=== PATIENT | female | born 1955 | race African-American/Black ===

== ENCOUNTER 2018-07-29 02:48 | Emergency (ER) | payer MEDICAID ==
[~2018-07-29] VITALS: Ht 167.6 cm; Wt 95.0 kg
[~2018-07-29 02:48] MED LIST: ASPI-986 PO; CALC1TAB17 PO; CARV3.1242 PO; EMTR1TAB11 PO; FLUO1POW12 MC; GABA250S4 PO; ZOLP5TAB8 PO; [UNRECOGNIZED DRUG - CODE] PO; [UNRECOGNIZED DRUG - CODE] PO
[2018-07-29 04:22] LABS: BASOPHILS % 0.5 % (0.0-2.0); EOSINOPHILS % 1.7 % (0.0-5.0); HEMATOCRIT. 38.8 % (36.0-48.0); HEMOGLOBIN. 13.1 g/dL (12.0-16.0); LYMPHOCYTES % 45.3 % (20.0-50.0); MEAN CORPUSCULAR HEMOGLOBIN 33.5 pg (28.0-32.0); MEAN CORPUSCULAR VOLUME 99.5 fL (81.0-99.0); MEAN PLATELET VOLUME 9.9 fl (7.4-10.4); MONOCYTES % 7.1 % (2.0-8.0); NEUTROPHILS % 45.4 % (40.0-76.0); PLATELET 235 x1000/uL (130-400)
[2018-07-29 04:22] LABS: CLARITY URINE CLEAR (CLEAR); COLOR URINE YELLOW (YELLOW); KETONES URINE NEGATIVE (NEGATIVE); LEUKOCYTE ESTERASE URINE NEGATIVE (NEGATIVE); NITRITE URINE NEGATIVE (NEGATIVE); OCCULT BLOOD URINE TRACE (NEGATIVE); PROTEIN URINE NEGATIVE (NEGATIVE); SPECIFIC GRAVITY URINE 1.003 (1.005-1.030); UROBILINOGEN URINE 0.2 E.U./dL (0.2-1.0)
[2018-07-29 04:26] LABS: CHLORIDE 106 mEq/L (98-107)
[2018-07-29 04:30] LABS: ETHANOL BLOOD 238 mg/dL
[2018-07-29 04:44] LABS: CANNABINOID URINE SCREEN PRESUMTIVE POSITIVE (NEGATIVE); OPIATES URINE SCREEN NEGATIVE (NEGATIVE); PHENCYCLIDINE URINE SCREEN NEGATIVE (NEGATIVE)
[2018-07-29 04:45] LABS: *AMPHETAMINES SCREEN URINE NEGATIVE (NEGATIVE); *BARBITURATES SCREEN URINE NEGATIVE (NEGATIVE); *BENZODIAZEPINES SCREEN URINE NEGATIVE (NEGATIVE); *COCAINE SCREEN URINE NEGATIVE (NEGATIVE); METHADONE URINE SCREEN NEGATIVE (NEGATIVE)
[2018-07-29] MEDS ORDERED: KETOROLAC 30MG/ML VIAL IM ONE (10:15)
[2018-07-29 11:17] VITALS: BP 132/74
== END 2018-07-29 11:57 | disposition home or self-care (01) ==
LOC: ER 04:30
DX: R45.851 Suicidal ideations (principal); F12.10 Cannabis abuse, uncomplicated; F10.10 Alcohol abuse, uncomplicated; F20.9 Schizophrenia, unspecified; I11.0 Hypertensive heart disease with heart failure; I50.9 Heart failure, unspecified; J44.9 Chronic obstructive pulmonary disease, unspecified; F17.200 Nicotine dependence, unspecified, uncomplicated; E66.9 Obesity, unspecified; Y90.7 Blood alcohol level of 200-239 mg/100 ml; Z86.19 Personal history of other infectious and parasitic diseases; Z79.82 Long term (current) use of aspirin; Z68.33 Body mass index [BMI] 33.0-33.9, adult
CPT/HCPCS: 36415; 80048; 80305; 80307; 80329; 81003; 85025; 96372; 99284; G0482; J1885; 99283

== ENCOUNTER 2018-10-18 08:56 | Emergency (ER) | payer MEDICAID ==
[~2018-10-18] VITALS: Ht 167.6 cm; Wt 90.0 kg
[2018-10-18] MEDS ORDERED: FAMOTIDINE 20MG/2ML VIAL IV STA (09:11)
[2018-10-18] MEDS ORDERED: SODIUM CHLORIDE 0.9% 1,000 ML IV ONE (09:11)
[2018-10-18] MEDS ORDERED: ONDANSETRON HCL 4MG/2ML INJ IV STA (09:11)
[2018-10-18 09:33] LABS: CLARITY URINE CLOUDY (CLEAR); COLOR URINE YELLOW (YELLOW); KETONES URINE NEGATIVE (NEGATIVE); LEUKOCYTE ESTERASE URINE 2+ (NEGATIVE); NITRITE URINE NEGATIVE (NEGATIVE); OCCULT BLOOD URINE 1+ (NEGATIVE); PROTEIN URINE NEGATIVE (NEGATIVE); SPECIFIC GRAVITY URINE 1.012 (1.005-1.030); UROBILINOGEN URINE 0.2 E.U./dL (0.2-1.0)
[2018-10-18 09:36] LABS: BASOPHILS % 1.4 % (0.0-2.0); EOSINOPHILS % 1.1 % (0.0-5.0); HEMATOCRIT. 40.5 % (36.0-48.0); HEMOGLOBIN. 13.6 g/dL (12.0-16.0); LYMPHOCYTES % 34.6 % (20.0-50.0); MEAN CORPUSCULAR VOLUME 98.6 fL (81.0-99.0); MEAN PLATELET VOLUME 9.5 fl (7.4-10.4); MONOCYTES % 4.3 % (2.0-8.0); NEUTROPHILS % 58.6 % (40.0-76.0); PLATELET 208 x1000/uL (130-400); RED BLOOD CELL COUNT 4.11 mill/uL (4.2-5.4); RED CELL DISTRIBUTION WIDTH 13.4 % (11.6-14.6)
[2018-10-18 09:42] LABS: CHLORIDE 108 mEq/L (98-107)
[2018-10-18 09:43] LABS: PROTHROMBIN TIME 9.6 sec (9.1-11.1)
[2018-10-18 09:45] LABS: ETHANOL BLOOD 160 mg/dL
[2018-10-18 10:10] LABS: CANNABINOID URINE SCREEN PRESUMTIVE POSITIVE (NEGATIVE)
[2018-10-18 10:11] LABS: *AMPHETAMINES SCREEN URINE NEGATIVE (NEGATIVE); *BARBITURATES SCREEN URINE NEGATIVE (NEGATIVE); *BENZODIAZEPINES SCREEN URINE NEGATIVE (NEGATIVE); *COCAINE SCREEN URINE NEGATIVE (NEGATIVE); METHADONE URINE SCREEN NEGATIVE (NEGATIVE); OPIATES URINE SCREEN NEGATIVE (NEGATIVE)
[2018-10-18 10:12] LABS: PHENCYCLIDINE URINE SCREEN NEGATIVE (NEGATIVE)
[2018-10-18] MEDS ORDERED: LORAZEPAM 2MG/ML CPJ IV ONE (10:30)
[2018-10-18 15:35] VITALS: BP 137/67
== END 2018-10-18 15:30 | disposition home or self-care (01) ==
LOC: ER 08:56
DX: N39.0 Urinary tract infection, site not specified (principal); F10.129 Alcohol abuse with intoxication, unspecified; R11.10 Vomiting, unspecified; K29.70 Gastritis, unspecified, without bleeding; J44.9 Chronic obstructive pulmonary disease, unspecified; F17.200 Nicotine dependence, unspecified, uncomplicated; Z79.899 Other long term (current) drug therapy; Z79.82 Long term (current) use of aspirin
CPT/HCPCS: 36415; 71045; 74176; 80053; 80305; 80320; 81003; 83690; 83880; 84484; 85025; 85610; 86850; 86900; 86901; 93005; 96361; 96374; 96375; 99284; J2060; J2405; J3490; J7030; Z7610; G0480

== ENCOUNTER 2020-04-13 07:15 | Emergency (ER) | payer MEDICAID ==
[~2020-04-13] VITALS: Ht 162.6 cm; Wt 100.0 kg
[2020-04-13 08:15] LABS: BASOPHILS % 0.9 % (0.0-2.0); EOSINOPHILS % 1.3 % (0.0-5.0); HEMATOCRIT. 36.5 % (36.0-48.0); HEMOGLOBIN. 12.3 g/dL (12.0-16.0); LYMPHOCYTES % 49.1 % (20.0-50.0); MEAN CORPUSCULAR HEMOGLOBIN 33.8 pg (28.0-32.0); MEAN CORPUSCULAR VOLUME 100.2 fL (81.0-99.0); MEAN PLATELET VOLUME 9.9 fl (7.4-10.4); MONOCYTES % 6.1 % (2.0-8.0); NEUTROPHILS % 42.6 % (40.0-76.0); PLATELET 233 x1000/uL (130-400); RED BLOOD CELL COUNT 3.64 mill/uL (4.2-5.4)
[2020-04-13 08:23] LABS: CHLORIDE 109 mEq/L (98-107)
[2020-04-13 08:27] LABS: ETHANOL BLOOD 288 mg/dL
[2020-04-13 08:33] LABS: CLARITY URINE CLOUDY (CLEAR); COLOR URINE YELLOW (YELLOW); KETONES URINE NEGATIVE (NEGATIVE); LEUKOCYTE ESTERASE URINE 2+ (NEGATIVE); NITRITE URINE NEGATIVE (NEGATIVE); OCCULT BLOOD URINE TRACE (NEGATIVE); PROTEIN URINE NEGATIVE (NEGATIVE); SPECIFIC GRAVITY URINE 1.008 (1.005-1.030); UROBILINOGEN URINE 0.2 E.U./dL (0.2-1.0)
[2020-04-13 09:24] LABS: *BARBITURATES SCREEN URINE NEGATIVE (NEGATIVE); *BENZODIAZEPINES SCREEN URINE NEGATIVE (NEGATIVE); *COCAINE SCREEN URINE NEGATIVE (NEGATIVE); METHADONE URINE SCREEN NEGATIVE (NEGATIVE); OPIATES URINE SCREEN NEGATIVE (NEGATIVE); PHENCYCLIDINE URINE SCREEN NEGATIVE (NEGATIVE)
[2020-04-13 09:25] LABS: *AMPHETAMINES SCREEN URINE NEGATIVE (NEGATIVE); CANNABINOID URINE SCREEN PRESUMTIVE POSITIVE (NEGATIVE)
[2020-04-13] MEDS ORDERED: POTASSIUM CHLORIDE 20MEQ TABLET SR PO ONE (11:45)
[2020-04-13] MEDS: CEPHALEXIN 250MG CAPSULE PO SCH ×2 (12:06→13:00)
[2020-04-15] MEDS ORDERED: LORAZEPAM 2MG/ML CPJ IM ONE (07:45)
[2020-04-15] MEDS ORDERED: OLANZAPINE 10 MG/VIAL IM ONE (07:45)
[2020-04-15] MEDS: NITROFURANTOIN 100MG M/M CAPSULE PO SCH (21:18)
[2020-04-16] MEDS: NITROFURANTOIN 100MG M/M CAPSULE PO SCH ×2 (09:00→21:34)
[2020-04-16] MEDS ORDERED: GABAPENTIN 300MG CAPSULE PO ONE (18:15)
[2020-04-16] MEDS ORDERED: CLONIDINE 0.1MG TABLET PO ONE (20:45)
[2020-04-16 21:39] VITALS: BP 168/84
== END 2020-04-16 21:48 ==
LOC: ER 07:15
DX: R45.851 Suicidal ideations (principal); T40.7X1A Poisoning by cannabis (derivatives), accidental (unintentional), initial encounter; I11.0 Hypertensive heart disease with heart failure; I50.9 Heart failure, unspecified; J44.9 Chronic obstructive pulmonary disease, unspecified; N30.00 Acute cystitis without hematuria; Z79.899 Other long term (current) drug therapy; Y92.9 Unspecified place or not applicable
CPT/HCPCS: 36415; 80053; 80305; 80307; 80320; 80329; 81003; 85025; 93005; 99285; J2060; J3490; G0480

== ENCOUNTER 2021-10-01 22:03 | Inpatient (IN) | payer MEDICARE, MEDICAID ==
[~2021-10-01] VITALS: Ht 167.6 cm; Wt 89.8 kg
[2021-10-01] MEDS ORDERED: PIPERACILLIN/TAZ 3.375G PREMIX 50 ML IV ONE (23:15)
[2021-10-01] MEDS ORDERED: VANCOMYCIN 1G PREMIX 200 ML IV ONE (23:15)
[2021-10-01] MEDS ORDERED: SODIUM CHLORIDE 0.9% 1000ML BAG (SEPSIS BOLUS) IV ONE (23:15)
[2021-10-01 23:41] LABS: BASOPHILS % 0.8 % (0.0-2.0); EOSINOPHILS % 1.1 % (0.0-5.0); HEMATOCRIT. 33.2 % (36.0-48.0); HEMOGLOBIN. 10.8 g/dL (12.0-16.0); LYMPHOCYTES % 34.8 % (20.0-50.0); MEAN CORPUSCULAR HEMOGLOBIN 29.7 pg (28.0-32.0); MEAN CORPUSCULAR VOLUME 91.2 fL (81.0-99.0); MONOCYTES % 11.6 % (2.0-8.0); NEUTROPHILS % 51.7 % (40.0-76.0); PLATELET 272 x1000/uL (130-400); RED BLOOD CELL COUNT 3.64 mill/uL (4.2-5.4)
[2021-10-01 23:49] LABS: CHLORIDE 111 mEq/L (98-107)
[2021-10-02] MEDS ORDERED: MORPHINE SULFATE 4 MG/ML CPJ (NOT FOR IM USE) IV STA (00:47)
[2021-10-02] MEDS ORDERED: ONDANSETRON HCL 4MG/2ML INJ IV STA (00:47)
[2021-10-02] MEDS ORDERED: DIPHENHYDRAMINE 50MG/ML VIAL IV ONE (01:00)
[2021-10-02] MEDS ORDERED: ASPIRIN 81MG TABLET PO ONE (01:00)
[2021-10-02 01:45] LABS: CLARITY URINE CLEAR (CLEAR); COLOR URINE YELLOW (YELLOW); KETONES URINE NEGATIVE (NEGATIVE); LEUKOCYTE ESTERASE URINE NEGATIVE (NEGATIVE); NITRITE URINE NEGATIVE (NEGATIVE); OCCULT BLOOD URINE 2+ (NEGATIVE); PH URINE 5.5 (4.5-8.0); PROTEIN URINE NEGATIVE (NEGATIVE); SPECIFIC GRAVITY URINE 1.015 (1.005-1.030); UROBILINOGEN URINE 0.2 E.U./dL (0.2-1.0)
[2021-10-02] MEDS ORDERED: DIPHENHYDRAMINE 50MG/ML VIAL IV NR (05:45)
[2021-10-02 14:00] VITALS: BP 162/78
[2021-10-02] MEDS ORDERED: GABA-532 PO (15:10)
[2021-10-02] MEDS ORDERED: ACET-2708 PO (15:10)
[2021-10-02] MEDS ORDERED: CARV25TA47 MT (15:10)
[2021-10-02] MEDS ORDERED: BICT1TAB PO (15:10)
[2021-10-02] MEDS ORDERED: CHLO25TA2 PO (15:10)
[2021-10-02 15:44] VITALS: BP 162/78
[2021-10-02] MEDS ORDERED: IPRATROPIUM/ALBUTEROL 0.5-3(2.5)MG/3ML NEB HHN PRN (16:00)
[2021-10-02] MEDS ORDERED: CLONIDINE 0.1MG TABLET PO PRN (16:00)
[2021-10-02 17:02] LABS: BASOPHILS % 0.3 % (0.0-2.0); EOSINOPHILS % 1.8 % (0.0-5.0); HEMATOCRIT. 31.9 % (36.0-48.0); HEMOGLOBIN. 10.6 g/dL (12.0-16.0); LYMPHOCYTES % 28.4 % (20.0-50.0); MEAN CORPUSCULAR HEMOGLOBIN 30.6 pg (28.0-32.0); MEAN CORPUSCULAR VOLUME 91.6 fL (81.0-99.0); MEAN PLATELET VOLUME 9.5 fl (7.4-10.4); MONOCYTES % 10.8 % (2.0-8.0); NEUTROPHILS % 58.7 % (40.0-76.0); PLATELET 250 x1000/uL (130-400); RED BLOOD CELL COUNT 3.48 mill/uL (4.2-5.4); RED CELL DISTRIBUTION WIDTH 13.9 % (11.6-14.6)
[2021-10-02 17:08] LABS: CHLORIDE 113 mEq/L (98-107)
[2021-10-02] MEDS: SODIUM CHLORIDE 0.45% 1,000 ML IV SCH (17:48)
[2021-10-02] MEDS ORDERED: *PATIENT'S OWN MEDICATION STORAGE XX SCH (18:30)
[2021-10-02 20:00] VITALS: BP 138/71
[2021-10-02] MEDS: BIKTARVY PO SCH (20:00)
[2021-10-02] MEDS: ACETAMINOPHEN 325MG TABLET PO PRN (20:08)
[2021-10-02] MEDS: CARVEDILOL 3.125 MG TABLET PO SCH (20:09)
[2021-10-03] VITALS: BP 143/77
[2021-10-03 04:00] VITALS: BP 153/82
[2021-10-03] MEDS: SODIUM CHLORIDE 0.45% 1,000 ML IV SCH (05:36)
[2021-10-03 08:21] VITALS: BP 146/74
[2021-10-03] MEDS ORDERED: THROAT LOZENGES-BENZOCAINE/MENTH/CETYLPYRD CL LOZENGES MM PRN (08:45)
[2021-10-03] MEDS: ASPIRIN 325MG EC TABLET PO SCH (09:02)
[2021-10-03] MEDS: CARVEDILOL 3.125 MG TABLET PO SCH ×2 (09:02→22:09)
[2021-10-03] MEDS: BIKTARVY PO SCH (09:02)
[2021-10-03] MEDS: ACETAMINOPHEN 325MG TABLET PO PRN ×3 (09:49→22:09)
[2021-10-03 10:20] LABS: CHLORIDE 110 mEq/L (98-107)
[2021-10-03 10:26] LABS: BASOPHILS % 0.5 % (0.0-2.0); EOSINOPHILS % 1.2 % (0.0-5.0); HEMOGLOBIN. 10.2 g/dL (12.0-16.0); LYMPHOCYTES % 19.7 % (20.0-50.0); MEAN CORPUSCULAR HEMOGLOBIN 30.9 pg (28.0-32.0); MEAN CORPUSCULAR VOLUME 91.1 fL (81.0-99.0); MEAN PLATELET VOLUME 9.6 fl (7.4-10.4); MONOCYTES % 9.1 % (2.0-8.0); NEUTROPHILS % 69.5 % (40.0-76.0); PLATELET 238 x1000/uL (130-400); RED BLOOD CELL COUNT 3.29 mill/uL (4.2-5.4)
[2021-10-03 12:08] VITALS: BP 141/63
[2021-10-03] MEDS ORDERED: AMOX-424 MT (15:08)
[2021-10-03] MEDS: AMOXICILLIN/POTASSIUM CLAVULANATE 875/125MG TAB PO SCH ×2 (15:24→22:08)
[2021-10-03 15:47] VITALS: BP 123/53
[2021-10-03 20:00] VITALS: BP 129/75
[2021-10-04] VITALS: BP 169/78
[2021-10-04 02:00] VITALS: BP 147/85
[2021-10-04 04:42] VITALS: BP 151/97
[2021-10-04 06:11] LABS: % CD 3 POS. LYMPHOCYTES 79.5 % (57.5-86.2); % CD 4 POS. LYMPHOCYTES 40.8 % (30.8-58.5); ABSOLUTE CD 3 1113 /uL (622-2402); ABSOLUTE CD 4 HELPER 571 /uL (359-1519); ABSOLUTE CD 8 SUPPRESSOR 560 /uL (109-897); ABSOLUTE EOSINOPHILS 0.1 x10E3/uL (0.0-0.4); ABSOLUTE LYMPHOCYTES 1.4 x10E3/uL (0.7-3.1); ABSOLUTE MONOCYTES 0.5 x10E3/uL (0.1-0.9); ABSOLUTE NEUTROPHILS 4.8 x10E3/uL (1.4-7.0); BASOPHILS 0 % (Not Estab.); CD4/CD8 RATIO 1.02 (0.92-3.72); HEMATOCRIT 31.5 % (34.0-46.6); HEMOGLOBIN 10.3 g/dL (11.1-15.9); IMMATURE GRANULOCYTES 0 % (Not Estab.); LYMPHOCYTES 21 % (Not Estab.); MEAN CORPUSCULAR HEMOGLOBIN 30.3 pg (26.6-33.0); MEAN CORPUSCULAR HGB CONC. 32.7 g/dL (31.5-35.7); MEAN CORPUSCULAR VOLUME 93 fL (79-97); MONOCYTES 7 % (Not Estab.); NEUTROPHILS 71 % (Not Estab.); PLATELETS 251 x10E3/uL (150-450); RED CELL DISTRIBUTION WIDTH 13.4 % (11.7-15.4); WBC 6.9 x10E3/uL (3.4-10.8)
[2021-10-04 07:45] VITALS: BP 148/90
[2021-10-04] MEDS ORDERED: NEOMYCIN/BACITRACIN/POLYMYXIN OINT 14GM TOP SCH (09:00)
[2021-10-04] MEDS: AMOXICILLIN/POTASSIUM CLAVULANATE 875/125MG TAB PO SCH (09:36)
[2021-10-04] MEDS: ASPIRIN 325MG EC TABLET PO SCH (09:36)
[2021-10-04] MEDS: CARVEDILOL 3.125 MG TABLET PO SCH (09:37)
[2021-10-04] MEDS: ACETAMINOPHEN 325MG TABLET PO PRN (09:38)
[2021-10-04] MEDS: BIKTARVY PO SCH (09:44)
== END 2021-10-04 12:50 | disposition home health service (06) | DRG 469 ==
LOC: ER 22:03 → MICUSO 10-02 00:56 → 6WST 10-02 13:30
PROVIDERS: ADMIT Family Medicine; ATTEND Family Medicine
PROC: 0HD5XZZ Extraction of Chest Skin, External Approach (ICD-10-PCS; principal; 2021-10-03)
PROC: 0HD5XZZ Extraction of Chest Skin, External Approach (ICD-10-PCS; 2021-10-03)
DX: N17.0 Acute kidney failure with tubular necrosis (principal); B20 Human immunodeficiency virus [HIV] disease; E44.1 Mild protein-calorie malnutrition; I69.354 Hemiplegia and hemiparesis following cerebral infarction affecting left non-dominant side; I50.9 Heart failure, unspecified; E11.9 Type 2 diabetes mellitus without complications; D64.9 Anemia, unspecified; I11.0 Hypertensive heart disease with heart failure; E66.01 Morbid (severe) obesity due to excess calories; G40.909 Epilepsy, unspecified, not intractable, without status epilepticus; R79.89 Other specified abnormal findings of blood chemistry; Z20.822 Contact with and (suspected) exposure to COVID-19; J44.9 Chronic obstructive pulmonary disease, unspecified; Z85.3 Personal history of malignant neoplasm of breast; Z87.891 Personal history of nicotine dependence; Z68.32 Body mass index [BMI] 32.0-32.9, adult; Z79.82 Long term (current) use of aspirin; Z79.899 Other long term (current) drug therapy; N63.20 Unspecified lump in the left breast, unspecified quadrant; N63.10 Unspecified lump in the right breast, unspecified quadrant; R77.8 Other specified abnormalities of plasma proteins
CPT/HCPCS: 36415; 71045; 76642; 80053; 81003; 83036; 83605; 83880; 84145; 84484; 85025; 86359; 86360; 87426; 93005; 93306; 94640; 99285; C1893; J1200; J2270; J2405; J2543; J3370; J7030

== ENCOUNTER 2022-12-10 17:53 | Inpatient (IN) | payer MEDICARE, MEDICAID ==
[~2022-12-10] VITALS: Ht 160 cm; Wt 82.1 kg
[~2022-12-10 17:53] MED LIST changes: +ACET-2708 PO; +AMOX-424 MT; +BICT1TAB PO; +CARV25TA47 MT; +CHLO25TA2 PO; +GABA-532 PO
[2022-12-10] MEDS ORDERED: SODIUM CHLORIDE 0.9% 1,000 ML IV ONE (19:30)
[2022-12-10 19:36] LABS: BASOPHILS % 0.9 % (0.0-2.0); HEMATOCRIT. 35.9 % (36.0-48.0); HEMOGLOBIN. 11.8 g/dL (12.0-16.0); MEAN CORPUSCULAR HEMOGLOBIN 31.5 pg (28.0-32.0); MEAN CORPUSCULAR VOLUME 95.3 fL (81.0-99.0); MEAN PLATELET VOLUME 10.3 fl (7.4-10.4); MONOCYTES % 8.6 % (2.0-8.0); NEUTROPHILS % 58.5 % (40.0-76.0); PLATELET 237 x1000/uL (130-400); RED BLOOD CELL COUNT 3.77 mill/uL (4.2-5.4)
[2022-12-10 19:38] LABS: CLARITY URINE CLEAR (CLEAR); COLOR URINE YELLOW (YELLOW); KETONES URINE NEGATIVE (NEGATIVE); LEUKOCYTE ESTERASE URINE 3+ (NEGATIVE); NITRITE URINE NEGATIVE (NEGATIVE); OCCULT BLOOD URINE 2+ (NEGATIVE); PH URINE 7.5 (4.5-8.0); PROTEIN URINE NEGATIVE (NEGATIVE); SPECIFIC GRAVITY URINE 1.012 (1.005-1.030)
[2022-12-10 19:41] LABS: INR 0.9; PROTHROMBIN TIME 10.1 sec (9.6-11.0)
[2022-12-10 19:46] LABS: CHLORIDE 110 mEq/L (98-107)
[2022-12-10 19:49] LABS: *AMPHETAMINES SCREEN URINE NEGATIVE (NEGATIVE); *BARBITURATES SCREEN URINE NEGATIVE (NEGATIVE); *BENZODIAZEPINES SCREEN URINE NEGATIVE (NEGATIVE); *COCAINE SCREEN URINE PRESUMTIVE POSITIVE (NEGATIVE); CANNABINOID URINE SCREEN PRESUMTIVE POSITIVE (NEGATIVE); METHADONE URINE SCREEN NEGATIVE (NEGATIVE); OPIATES URINE SCREEN NEGATIVE (NEGATIVE); PHENCYCLIDINE URINE SCREEN NEGATIVE (NEGATIVE)
[2022-12-10 20:01] LABS: CREATINE KINASE 49 IU/L (26-192); ETHANOL BLOOD < 10 mg/dL
[2022-12-10 20:15] LABS: BG BASE EXCESS 1.5 mmol/L (-2.0-2.0); BG CARBOXYHEMOGLOBIN 1.7 % (0.5-1.5); BG DEOXYHEMOGLOBIN 4.9 % (0.0-5.0); BG HCO3 ACT 25.6 mmol/L (22.0-26.0); BG METHEMOGLOBIN 0.2 % (0.0-1.5); BG OXYHEMOGLOBIN 93.2 % (94.0-97.0); BG PCO2 38.8 mmHg (35.0-45.0); BG PH 7.438 (7.350-7.450); BG PO2 74.6 mmHg (75.0-100.0); BG SAMPLE SITE LEFT BRACHIAL; BG TOTAL HEMOGLOBIN 12.2 g/dL (12.0-18.0); BG VENT MODE ROOM AIR
[2022-12-10] MEDS ORDERED: CEFTRIAXONE 1GM PREMIX 50 ML IV ONE (20:45)
[2022-12-10] MEDS ORDERED: LORAZEPAM 2MG/ML CPJ IV PRN (21:45)
[2022-12-10] MEDS ORDERED: OLANZAPINE 10 MG/VIAL IM ONE (21:45)
[2022-12-10] MEDS ORDERED: IPRATROPIUM/ALBUTEROL 0.5-3(2.5)MG/3ML NEB HHN PRN (21:45)
[2022-12-10] MEDS ORDERED: MAGNESIUM/ALUMINUM HYDROXIDE/SIMETHICONE 30ML UDC PO PRN (21:45)
[2022-12-10] MEDS ORDERED: MVI, ADULT NO.1 10 ML, FOLIC ACID 1 MG, THIAMINE HCL 100 MG in SODIUM CHLORIDE 0.9% 1,0... IV SCH ×4 (21:45)
[2022-12-10] MEDS: LACTULOSE 20G/30ML UDC PO ONE (21:45)
[2022-12-10] MEDS ORDERED: ONDANSETRON HCL 4MG/2ML INJ IV PRN (21:45)
[2022-12-10] MEDS ORDERED: CLONIDINE 0.1MG TABLET PO PRN (21:45)
[2022-12-10] MEDS ORDERED: DEXTROSE 50% WATER 50ML SYRINGE IV PRN (21:45)
[2022-12-10] MEDS ORDERED: DOCUSATE SODIUM 100MG CAPSULE PO PRN (21:45)
[2022-12-10] MEDS ORDERED: ENOXAPARIN 40MG/0.4ML SYR SUBCUT SCH (21:45)
[2022-12-10] MEDS: DEXT 5%/0.45% NACL 1000ML 1,000 ML IV SCH (21:45)
[2022-12-10] MEDS ORDERED: GUAIFENESIN 200MG/10ML SUGAR FREE UDC PO PRN (21:45)
[2022-12-10] MEDS ORDERED: HYDROCODONE/ACETAMINOPHEN 5/325MG TABLET PO PRN (21:45)
[2022-12-10] MEDS ORDERED: ACETAMINOPHEN 325MG TABLET PO PRN ×2 (21:45)
[2022-12-10] MEDS: ASPIRIN 81MG TABLET PO SCH (22:59)
[2022-12-10] MEDS ORDERED: CEFTRIAXONE 1GM PREMIX 50 ML IV NR (23:00)
[2022-12-10] MEDS ORDERED: HALOPERIDOL LACTATE 5MG/ML VIAL IM ONE (23:15)
[2022-12-11] MEDS ORDERED: LACTULOSE 20G/30ML UDC PO NR (07:00)
[2022-12-11 07:56] VITALS: BP 141/73
[2022-12-11] MEDS ORDERED: INSULIN LISPRO 100 UNITS/ML SUBCUT SCH (08:20)
[2022-12-11] MEDS: ASPIRIN 81MG TABLET PO SCH (08:25)
[2022-12-11] MEDS: CARVEDILOL 3.125 MG TABLET PO SCH ×2 (08:25→20:38)
[2022-12-11] MEDS ORDERED: ENOXAPARIN 40MG/0.4ML SYR SUBCUT SCH (09:00)
[2022-12-11] MEDS ORDERED: BLOOD SUGAR DIAGNOSTIC STRIP TEST SCH (09:00)
[2022-12-11] MEDS: DEXT 5%/0.45% NACL 1000ML 1,000 ML IV SCH (09:08)
[2022-12-11 12:25] VITALS: BP 140/52
[2022-12-11] MEDS: CHLORTHALIDONE 25MG TABLET PO SCH (12:25)
[2022-12-11 16:00] VITALS: BP 140/66
[2022-12-11 17:46] LABS: BASOPHILS % 0.7 % (0.0-2.0); EOSINOPHILS % 1.6 % (0.0-5.0); HEMOGLOBIN. 11.6 g/dL (12.0-16.0); LYMPHOCYTES % 43.4 % (20.0-50.0); MEAN CORPUSCULAR VOLUME 96.2 fL (81.0-99.0); MEAN PLATELET VOLUME 10.3 fl (7.4-10.4); MONOCYTES % 11.1 % (2.0-8.0); NEUTROPHILS % 43.2 % (40.0-76.0); PLATELET 200 x1000/uL (130-400); RED BLOOD CELL COUNT 3.64 mill/uL (4.2-5.4); RED CELL DISTRIBUTION WIDTH 13.7 % (11.6-14.6)
[2022-12-11 17:59] LABS: CREATINE KINASE 427 IU/L (26-192)
[2022-12-11 18:02] LABS: CREATINE KINASE MB FRACTION 1.9 ng/mL (0.5-3.6); T4 FREE 1.03 ng/dL (0.76-1.46)
[2022-12-11 20:00] VITALS: BP 140/75
[2022-12-11] MEDS ORDERED: FAMOTIDINE 20MG TABLET PO SCH (21:00)
[2022-12-11] MEDS ORDERED: ATORVASTATIN CALCIUM 40MG TABLET PO SCH (21:00)
[2022-12-11] MEDS ORDERED: CEFTRIAXONE 1GM PREMIX 50 ML IV SCH (21:45)
[2022-12-11] MEDS ORDERED: CEFTRIAXONE 1,000 MG in DEXTROSE 5% WATER 50 ML IV SCH (22:00)
[2022-12-12] VITALS: BP 133/78
[2022-12-12 00:41] LABS: CREATINE KINASE 404 IU/L (26-192)
[2022-12-12 04:00] VITALS: BP 122/80
[2022-12-12 08:00] VITALS: BP 134/63
[2022-12-12] MEDS: CARVEDILOL 3.125 MG TABLET PO SCH (08:13)
[2022-12-12] MEDS: ASPIRIN 81MG TABLET PO SCH (08:13)
[2022-12-12] MEDS: CHLORTHALIDONE 25MG TABLET PO SCH (08:14)
[2022-12-12] MEDS ORDERED: CLOPIDOGREL 75MG TABLET PO SCH (09:00)
[2022-12-12] MEDS ORDERED: ENOXAPARIN 30MG/0.3ML SYR SUBCUT SCH (09:00)
[2022-12-12 12:00] VITALS: BP 132/67
[2022-12-12] MEDS: DEXT 5%/0.45% NACL 1000ML 1,000 ML IV SCH (13:01)
[2022-12-12 16:00] VITALS: BP 126/74
[2022-12-12 16:29] LABS: CREATINE KINASE 241 IU/L (26-192)
== END 2022-12-12 18:10 | disposition left against medical advice (07) | DRG 45 ==
LOC: ER 17:53 → MICUSO 22:17 → SUPCPDRO 22:19 → EDBEDREQSVC 22:24 → EDBEDREQTM 22:24 → EDBEDREQ 22:24 → 8WST 12-11 08:11
PROVIDERS: ADMIT Internal Medicine; ATTEND Internal Medicine
DX: I63.9 Cerebral infarction, unspecified (principal); G92.8 Other toxic encephalopathy; I21.A1 Myocardial infarction type 2; E87.1 Hypo-osmolality and hyponatremia; D64.9 Anemia, unspecified; I50.9 Heart failure, unspecified; Z20.822 Contact with and (suspected) exposure to COVID-19; Z53.29 Procedure and treatment not carried out because of patient's decision for other reasons; I11.0 Hypertensive heart disease with heart failure; N39.0 Urinary tract infection, site not specified; E78.5 Hyperlipidemia, unspecified; J44.9 Chronic obstructive pulmonary disease, unspecified; F14.10 Cocaine abuse, uncomplicated; Z79.82 Long term (current) use of aspirin; Z79.899 Other long term (current) drug therapy
CPT/HCPCS: 36415; 36600; 70551; 71045; 80048; 80053; 80061; 80305; 80307; 80320; 80329; 81003; 82140; 82375; 82550; 82553; 82805; 82962; 83036; 83605; 83880; 84439; 84443; 84484; 85025; 85379; 87426; 93005; 93306; 93880; 93970; 97161; 99291; C9803; J0696; J1630; J1650; J2060; J3411; J3490; J7030; J7060; G0480